=== PATIENT | female | born 1985 | race Caucasian/White ===

== ENCOUNTER → 2017-03-22 10:43 | Outpatient (CLI) | payer BC, SELFPAY ==
[2017-03-22 14:47] LABS: Group B Strep DNA By PCR Negative (Negative); Internal Control PASS; Probe Check PASS; Specimen Processing Control PASS
== END ==
PROVIDERS: Visit Provider Obstetrics & Gynecology
DX: Z36.85 Encounter for antenatal screening for Streptococcus B (principal)
CPT/HCPCS: 87081; 87653

== ENCOUNTER 2017-04-25 20:34 | Inpatient (IN) | payer BC, SELFPAY ==
[2017-04-25 21:08] VITALS: BMI 24.3
--- NOTE | 2017-04-25 21:35 | PCM.PN.BLA ---
Progress Note LABOR PROGRESS NOTE Relates she is doing well between contractions. AVSS GEN - NAD, AAO x 3, breathing through contractions FHr 120, moderate variability, + accelerations, no decelerations TOCO 5/10 SVE deferred A/P: 31yo @ 40 6/7wga in active labor, Cat I FHR -GBS neg -NST reactive, will plan intermittent auscultation -Continue in labor
[2017-04-25 21:42] LABS: Hematocrit 39.8 % (37-47); Hemoglobin 13.6 g/dl (12.0-15.0); Mean Corp Hgb Conc 34.2 g/gl (32-36); Mean Corpuscular Hgb 32.1 pg (27.0-32.0); Mean Corpuscular Volume 93.9 fL (81-99); Mean Platelet Vol. 10.7 fl (6.2-12.0); Platelet Count 167 K/mm3 (150-450); RBC Distribution Width SD 44.7 fl (35.1-43.9); Red Blood Count 4.24 M/mm3 (4.2-5.4)
[2017-04-25 21:43] LABS: Scan Indicated on CBC? Y/N NO
[2017-04-25] MEDS: Methylergonovine 0.2 MG/ML Ampul IM (23:24)
--- NOTE | 2017-04-25 23:36 | PCM.OB.VAG ---
- Problem List (1) 40 weeks gestation of Status: Acute (2) (spontaneous vaginal delivery) Status: Acute Vaginal Delivery Maternal Presentation: Active Labor Amniotic Membrane Rupture Type: Spontaneous Rupture of Membrane time: 04/25/17 2357h Amniotic Fluid Description: Clear Final ESTELLE: 04/19/17 Final ESTELLE Source: US <20 weeks Gestational age: 40 Weeks and 6 Days Date of Procedure: 04/25/17 Pre-Operative Diagnosis: 40 6/7wga, labor Post-Operative Diagnosis: 40 6/7wga, labor Surgery/ Procedure Performed: Spontaneous Vaginal Delivery Type of Anesthesia: None Description of Procedure: Patient was FD/+2 station. Spontaneous amniotomy occurred with clear fluid and she pushed to deliver a vigorous male infant in AMBAR over an intact perineum. The infant was assess by nursery personnel on the maternal chest. The placenta delivered spontaneously and appeared intact on inspection. The cord was doubly clamped and cut. There was increase in bleeding without hemorrhage, thus intrauterine exam was performed with blood clots retrieved. IM Methergine was given as patient previously declined pitocin IV. The fundus was firm at 3 FW below umbilicus and further massage expulsed additional clot with no further significant bleeding. Perineum was intact. Presentation: Vertex Placental Delivery Description: Spontaneous Placenta Disposition: [facility] Cord Vessel Description: 3 Vessels Nuchal Cord Compression: Without compression Cord Entanglement: None Estimated Blood Loss: 400 mL A gender: Male (1 minute): 8 (5 minute): 9 Episiotomy Description: None Laceration: None Medications given after delivery: IM Methergin
--- NOTE | 2017-04-25 23:49 | DCINST_ITS ---
Discharge Diet: No Restrictions Discharge Activity: Return to Normal Activity, May Shower, May Take a Tub Bath May resume sexual activity in: 6 weeks Lifting Restrictions: 20 lb Call your doctor if you observe: Fever of 101 or Higher, Inability to urinate, Inability to have a bowel movement, Using more than one pad per hour, Shortness of breath, Chest pain, Calf discomfort, Uncontrolled pain Additional Instructions: If you experience any of the following, contact your healthcare provider. * Bleeding that soaks a pad every hour for 2 hours * Fever 100.4 or higher * Unrelieved incision or abdominal pain * Swelling, redness, discharge or bleeding from your incision or episiotomy site * Your incision begins to separate * Problems urinating (including inability to urinate or burning while urinating) . * Visual changes * Severe headache * Flu-like symptoms * Pain or redness in one of both of your breasts * Pain, warmth, tenderness or swelling in your legs, especially the calf area * Frequent nausea and vomiting * Symptoms of depression or anxiety If you experience any of the following, call 911 or go to the nearest Emergency Room. * Chest pain * Problems breathing * Seizure activity * Partial or complete paralysis of a body part, slurred speech, weakness or drooping of the face, or a sudden inability to walk or hold your balance Allergies/Adverse Reactions: Allergies No Known Allergies Allergy (Verified 04/02/15 07:56) Medications to take at Discharge Docusate Sodium [Colace] 100 mg PO BID PRN PRN #30 capsule 04/02/15 Naproxen [Naprosyn] 1 - 2 tab PO TID PRN PRN #40 tablet 04/02/15 Vits [Prenatabs FA ] 1 tablet PO DAILY 04/02/15 Docusate Sodium [Colace] 100 mg PO BID PRN PRN #30 cap 04/25/17 Ibuprofen 800 mg PO TID PRN #30 tab 04/25/17 The following prescriptions were given: Docusate Sodium [Colace] 100 mg PO BID PRN PRN #30 cap PRN Reason: Constipation Ibuprofen 800 mg PO TID PRN #30 tab PRN Reason: Pain Orders to be completed after discharge: Electric breast pump Location: None Selected Please Follow Up With: Susy Zuniga MD When: 6 weeks
[2017-04-25] MEDS: Oxytocin 30 units/NS 500 ml 30 UNITS/500 ML IV.SOLN 334 UNITS IV (23:59)
[2017-04-26] MEDS: Oxytocin 30 units/NS 500 ml 30 UNITS/500 ML IV.SOLN 167 UNITS IV (00:30)
[2017-04-26 03:47] VITALS: BP 103/51; PULSE 72; RESP 16; TEMP 36.6; O2SAT 98
[2017-04-26 09:00] VITALS: BP 112/64; PULSE 95; RESP 16; TEMP 36.5
[2017-04-26 12:00] VITALS: BP 110/59; PULSE 88; RESP 16; TEMP 36.8
[2017-04-26 16:00] VITALS: BP 97/52; PULSE 74; RESP 16; TEMP 36.6
[2017-04-26 20:51] VITALS: BP 97/56; PULSE 75; RESP 18; TEMP 36.6
[2017-04-27 02:00] VITALS: BP 93/58; PULSE 71; RESP 18; TEMP 36.3
--- NOTE | 2017-04-27 09:43 | PCM.PN.OB ---
Patient Problems: Active and Suspected Problems 40 weeks gestation of (Acute) (spontaneous vaginal delivery) (Acute) Subjective: No complaints. Denies heavy lochia. Infant is nursing well. Objective: AVSS - Physical Exam General: Alert, Oriented x3, Cooperative, No apparent distress HEENT: Atraumatic, Normocephalic Lungs: Clear to auscultation, Normal air movement Cardiovascular: Regular rate, Regular Rhythm Abdomen: Soft, Non Tender, Non-Distended, - - Fundus firm and nontender Extremities: No edema, No Calf Tenderness Neurological: Neuro grossly intact Psych/Mental Status: Normal Affect, Appropriate, Alert and oriented to time, place, person, mood and affect Vital Signs Temp Pulse Resp BP Pulse Ox 97.3 F L 71 18 93/58 L 98 04/27/17 02:00 04/27/17 02:00 04/27/17 02:00 04/27/17 02:00 04/26/17 03:47 Oxygen Delivery Method Room Air Weight: 64.1 kg Body Mass Index (BMI) 24.3 Intake and Output for Last 24 Hours 04/25/17 04/26/17 04/27/17 23:59 23:59 23:59 Output Total 850 / 850 Balance -850 / -850 Assessment/Plan Active and Suspected Problems 40 weeks gestation of (Acute) (spontaneous vaginal delivery) (Acute) 31yo PPD#2 s/p doing well. -O positive, Rubella immune - - bilirubin levels pending -Plan for d/c home later today
--- NOTE | 2017-04-27 09:47 | PCM.PN.OB ---
Patient Problems: Active and Suspected Problems 40 weeks gestation of (Acute) (spontaneous vaginal delivery) (Acute) Subjective: No issues overnight. Lochia light to moderate. She is . No complaints. Objective: AVSS - Physical Exam General: Alert, Oriented x3, Cooperative, No apparent distress HEENT: Atraumatic, Normocephalic Lungs: Clear to auscultation, Normal air movement Cardiovascular: Regular rate, Regular Rhythm, Normal S1, Normal S2 Abdomen: Soft, Non Tender, Non-Distended, - - Fundus firm and nontender, lochia moderate Extremities: No edema, No Calf Tenderness Neurological: Neuro grossly intact Psych/Mental Status: Normal Affect, Appropriate, Alert and oriented to time, place, person, mood and affect Vital Signs Temp Pulse Resp BP Pulse Ox 97.3 F L 71 18 93/58 L 98 04/27/17 02:00 04/27/17 02:00 04/27/17 02:00 04/27/17 02:00 04/26/17 03:47 Oxygen Delivery Method Room Air Weight: 64.1 kg Body Mass Index (BMI) 24.3 Intake and Output for Last 24 Hours 04/25/17 04/26/17 04/27/17 23:59 23:59 23:59 Output Total 850 / 850 Balance -850 / -850 Assessment/Plan Active and Suspected Problems 40 weeks gestation of (Acute) (spontaneous vaginal delivery) (Acute) 31yo PPD#1 s/p doing well. -O positive, Rubella immune - -Routine care
[2017-04-27 10:00] VITALS: BP 101/55; PULSE 84; RESP 14; TEMP 36.4
--- NOTE | 2017-04-27 14:43 | NURSING ---
1358 Discharged to home with baby, ambulatory to car. Pt states she is wants to go home and feels fine and is able to care for herself and her baby.
== END 2017-04-27 13:58 | disposition home or self-care (01) | DRG 775 ==
PROVIDERS: Admitting Provider Obstetrics & Gynecology; Visit Provider Obstetrics & Gynecology
DX: O69.81X0 Labor and delivery complicated by cord around neck, without compression, not applicable or unspecified (principal); O48.0 Post-term pregnancy; Z3A.40 40 weeks gestation of pregnancy; Z37.0 Single live birth
CPT/HCPCS: 59050; 85027; 86850; 86900; 99218; G0378

== ENCOUNTER → 2020-03-09 | Outpatient (CLI) | payer SELFPAY ==
[2020-03-11 03:07] LABS: Chlamydia By Nucleic Acid AMP Negative (Negative)
[2020-03-11 20:34] LABS: Gonococcus By Nucleic Acid AMP Negative (Negative)
[2020-03-14 21:24] LABS: HPV Reflexed? NOT INDICATED
== END | disposition home or self-care (01) ==
LOC: LABSPEC 11:45
PROVIDERS: Visit Provider Obstetrics & Gynecology
DX: Z12.4 Encounter for screening for malignant neoplasm of cervix (principal); Z11.3 Encounter for screening for infections with a predominantly sexual mode of transmission
CPT/HCPCS: 87491; 87591; 88175; G0145

== ENCOUNTER → 2020-04-14 10:59 | Outpatient (CLI) | payer SELFPAY ==
[2020-04-14 13:48] LABS: Absolute Lymphocyte Count 2.12 X10^3/uL (0.83-4.51); Absolute Neutrophil Count 8.6 X10^3/uL (2.0-7.7); Basophil# 0.03 X10^3/uL; Basophil% 0.3 % (0-1); Eosinophil# 0.13 X10^3/uL; Eosinophils% 1.1 % (0-5); Hematocrit 40.9 % (37-47); Hemoglobin 13.9 g/dL (12.0-15.0); Lymphocyte # 2.12 X10^3/ul (4.0); Lymphocyte % 18.2 % (19-41); Mean Corpuscular Hgb 32.3 pg (27.0-32.0); Mean Corpuscular Volume 95.1 fL (81-99); Mean Platelet Vol. 11.1 fl (6.2-12.0); Monocyte# 0.69 X10^3/uL; Monocyte% 5.9 % (0-10); NRBC Flagged by Analyzer 0 % (0-5); Neutrophil # 8.62 X10^3/uL (2.7-7.7); Neutrophil % 74.2 % (47-70); Platelet Count 232 K/mm3 (150-450); RBC Distribution Width CV 12.6 % (11.6-14.6); RBC Distribution Width SD 43.7 fl (35.1-43.9); White Blood Count 11.6 K/mm3 (4.4-11.0)
[2020-04-14 14:37] LABS: HIV - WCH Non-Reactive (Nonreactive); Hepatitis B Surface Antigen Non-Reactive (Nonreactive); Hepatitis C Antibody Non-Reactive (Nonreactive); Rubella IgG Reactive (Nonreactive); Syphilis Antibodies Non-reactive
== END ==
PROVIDERS: Visit Provider Student in an Organized Health Care Education/Training Program
DX: Z34.82 Encounter for supervision of other normal pregnancy, second trimester (principal)
CPT/HCPCS: 36415; 85025; 86703; 86762; 86803; 87086; 87088; 87340

== ENCOUNTER → 2020-05-26 09:33 | Outpatient (CLI) | payer SELFPAY ==
[2020-05-26 13:15] LABS: Hemoglobin 12.7 g/dL (12.0-15.0); Mean Corp Hgb Conc 32.6 g/dL (32-36); Mean Corpuscular Hgb 31.7 pg (27.0-32.0); Mean Corpuscular Volume 97.3 fL (81-99); Mean Platelet Vol. 11.3 fl (6.2-12.0); Platelet Count 203 K/mm3 (150-450); RBC Distribution Width CV 12.8 % (11.6-14.6); RBC Distribution Width SD 45.2 fl (35.1-43.9); Red Blood Count 4.01 M/mm3 (4.2-5.4); White Blood Count 11.3 K/mm3 (4.4-11.0)
[2020-05-26 13:21] LABS: Glucose Challenge Gest 1H 50g 68 mg/dL (70-140)
== END ==
PROVIDERS: Visit Provider Student in an Organized Health Care Education/Training Program
DX: R69 Illness, unspecified (principal)
CPT/HCPCS: 36415; 82950; 85027

== ENCOUNTER → 2020-08-26 | Outpatient (CLI) | payer SELFPAY | END | disposition home or self-care (01) | LOC: LABSPEC 12:03 | PROVIDERS: Visit Provider Obstetrics & Gynecology | DX: Z36.85 Encounter for antenatal screening for Streptococcus B (principal) | CPT/HCPCS: 87077; 87081; 87186 ==

== ENCOUNTER 2020-09-09 14:05 | Inpatient (IN) | payer SELFPAY ==
[2020-09-09] VITALS (20 sets, daily range): BP systolic 98–122; BP diastolic 50–73; PULSE 57–87; RESP 18; TEMP 36.5–37.4; O2SAT 84–99; BMI 25.0
[2020-09-09] MEDS: Lactated Ringers 1,000 ML 50 ML IV (14:41)
[2020-09-09 14:45] LABS: Basophil# 0.03 X10^3/uL; Basophil% 0.2 % (0-1); Eosinophil# 0.04 X10^3/uL; Eosinophils% 0.3 % (0-5); Hematocrit 34.8 % (37-47); Hemoglobin 11.7 g/dL (12.0-15.0); Lymphocyte % 10.9 % (19-41); Mean Corp Hgb Conc 33.6 g/dL (32-36); Mean Corpuscular Hgb 30.1 pg (27.0-32.0); Mean Corpuscular Volume 89.5 fL (81-99); Mean Platelet Vol. 10.9 fl (6.2-12.0); Monocyte# 0.85 X10^3/uL; Monocyte% 5.8 % (0-10); NRBC Flagged by Analyzer 0 % (0-5); Neutrophil # 12.04 X10^3/uL (2.7-7.7); Neutrophil % 82.4 % (47-70); Platelet Count 179 K/mm3 (150-450); RBC Distribution Width CV 13.4 % (11.6-14.6); RBC Distribution Width SD 43.8 fl (35.1-43.9); Red Blood Count 3.89 M/mm3 (4.2-5.4); White Blood Count 14.6 K/mm3 (4.4-11.0)
--- NOTE | 2020-09-09 18:47 | PCM.HP.BLA ---
History and Physical Date of Admission: 09/09/20 Chief complaint: Contractions History of present illness: 34-year-old G4, P3 at 40 weeks and 3 days ESTELLE: 09/06/2020 by LMP arrives with contractions. Denies headache, chest pain, shortness breath, nausea vomiting, right upper quadrant pain. Patient states good movement. Obstetric history: G1: Term 2013 G2: Term 04/02/2015 G3: Term 04/25/2017 G4: Current Past medical history: None Medications: vitamin Allergies: No known drug allergies Past surgical history: [place] teeth extraction Social history: Denies history of smoking, alcohol use, drug use Family history: Denies history DVT or PE Review of systems: Besides the above pertinent positives a full review of systems was performed and found to be negative Physical exam: Blood pressure 103/56 pulse 66 General: Normal-appearing no acute distress HEENT: Normocephalic atraumatic no cervical of adenopathy Cardiac/respiratory: Nonlabored breathing no use of accessory muscles Abdomen: Soft, nontender, gravid Pelvic exam: Cervix 10/100/+1. AROM clear fluid Extremities: No peripheral edema normal peripheral pulses Psych: Normal affect, demeanor nonpressured speech Labs: White blood cell count 14.6 hemoglobin 11.7 hematocrit 34.8% platelets 179. Blood type O+ antibody negative Assessment plan: 34-year-old G4, P3 at 40 weeks and 3 days in labor Admit labor delivery CEFM GBS positive: Based on natural state and advanced cervical dilation unlikely to be able to treat Routine orders
--- NOTE | 2020-09-09 18:50 | EX.PCM.OBRPT ---
Vaginal Delivery Findings Description of Procedure: Normal spontaneous vaginal delivery of a viable male , vertex direct OA. Delivered in all fours position, head and shoulders delivered with ease. Cord cut and clamped. Baby handed off to mom. Placenta delivered via cord traction and fundal massage. Patient declined IV/IM Pitocin, understood risks of hemorrhage. Agrees to IM Methergine, IM Methergine 0.2 mg given. No lacerations noted. EBL 300 cc Apgars 8/9
[2020-09-09] MEDS: Methylergonovine 0.2 MG/ML Ampul IM (19:11)
--- NOTE | 2020-09-09 20:35 | NURSING ---
Egg size clot x1 noted after pt up to bathroom. Educated pt on bleeding and clots, pt verbalized understanding.
[2020-09-10 03:20] VITALS: BP 83/42; PULSE 59; RESP 16; TEMP 36.6; O2SAT 95
--- NOTE | 2020-09-10 05:00 | NURSING ---
Report given to Jennifer PEÑA, taking over pt and care at this time.
[2020-09-10 08:36] VITALS: BP 92/55; PULSE 67; RESP 16; TEMP 36.2; O2SAT 97
--- NOTE | 2020-09-10 11:17 | PCM.DC ---
Discharge Instructions Diet Discharge Diet: No restrictions Activity Discharge Activity: Return to Normal Activity, May Drive and May Shower May resume sexual activity in: 4-6 weeks Weight Bearing Status: Weight bearing as tolerated Dressing / Incision Call your doctor if your incision/area has: Continuous Slow Oozing and Foul Smelling Discharge Call your doctor if you observe: Fever of 101 or Higher, Shortness of breath and Chest pain Follow Up Care Please Follow Up With: Susy Mohan MD When: 2-week telehealth visit, 4 to 6-week visit Test Results: Test results from this visit will be discussed in further detail at your follow-up appointment, if applicable. Discharge Plan Admission Admit Date/Time: 09/09/20 14:05 Attending Provider: Murphy Champion Primary Care Provider: Care Physician,Lynne Primary Discharge Orders/Prescriptions Prescriptions: No Action Prenatabs FA 1 TABLET tablet 1 tab PO DAILY RF: 0
--- NOTE | 2020-09-10 11:18 | PCM.PN.OB ---
Subjective Subjective No overnight complaints. Pain well controlled. Objective Data Objective Data Vital Signs: Vital Signs Temp Pulse Resp BP Pulse Ox 97.2 F L 67 16 92/55 L 97 09/10/20 08:36 09/10/20 08:36 09/10/20 08:36 09/10/20 08:36 09/10/20 08:36 Oxygen Delivery Method Room Air Weight: 145 lb 8.081 oz Body Mass Index (BMI) 25.0 Intake & Output: Intake and Output for Last 24 Hours 09/08/20 09/09/20 09/10/20 23:59 23:59 23:59 Intake Total 60.83 / 60.83 Output Total 1300 / 1300 Balance -1239.17 / -1239.17 Lab / Micro Data Result Diagrams: 09/09/20 14:30 Labs: Laboratory Results - last 24 hr 09/09/20 14:30: WBC 14.6 H, RBC 3.89 L, Hgb 11.7 L, Hct 34.8 L, MCV 89.5, MCH 30.1, MCHC 33.6, RDW Std Deviation 43.8, RDW Coeff of Maia 13.4, Plt Count 179, MPV 10.9, Immature Gran % (Auto) 0.400, Neut % (Auto) 82.4 H, Lymph % (Auto) 10.9 L, [place] % (Auto) 5.8, Eos % (Auto) 0.3, Baso % (Auto) 0.2, Absolute Neuts (auto) 12.0 H, Absolute Lymphs (auto) 1.60, Nucleated RBC % 0 09/09/20 14:30: Blood Type O POSITIVE, Antibody Screen NEGATIVE Physical Exam Const alert, oriented x3, no apparent distress, average body habitus, healthy appearing and well nourished HEENT normocephalic and moist oral mucous membranes Head and Scalp: atraumatic Neck full ROM Resp normal respiratory effort, no retractions and no use of accessory muscles GI normal to inspection, nondistended, normoactive bowel sounds Extremity normal to inspection, full ROM and no clubbing, cyanosis or edema Psych mental status grossly normal, affect normal, speech normal and activity/motor behavior normal Assessment & Plan (1) : PLAN: day 1. Pain well controlled. Breast-feeding. GBS positive and untreated, plans per furniture assembler and installer. Patient with questions on apneic events overnight, discussed briefly to discuss further with furniture assembler and installer. Patient okay to discharge home if okay with furniture assembler and installer
[2020-09-10 12:05] VITALS: BP 101/49; PULSE 72; RESP 16; TEMP 36.4; O2SAT 96
[2020-09-10 16:56] VITALS: BP 85/44; PULSE 68; RESP 18; TEMP 36.3; O2SAT 97
--- NOTE | 2020-09-14 18:23 | NURSING ---
no answer on follow up phone call. left voicemail
== END 2020-09-10 19:20 | disposition home or self-care (01) | DRG 807 ==
LOC: WPOUT 14:11 → WP 18:11
PROVIDERS: Obstetrics & Gynecology; Admitting Provider Obstetrics & Gynecology; Referring Provider Obstetrics & Gynecology; Visit Provider Obstetrics & Gynecology
DX: O98.82 Other maternal infectious and parasitic diseases complicating childbirth (principal); Z37.0 Single live birth; B95.1 Streptococcus, group B, as the cause of diseases classified elsewhere; Z3A.40 40 weeks gestation of pregnancy
CPT/HCPCS: 59025; 59050; 85025; 86850; 86900; 86901; 99218; J7120; G0378

== ENCOUNTER 2022-12-09 08:30 | Inpatient (IN) | payer SELFPAY ==
[2022-12-09] VITALS (22 sets, daily range): BP systolic 99–124; BP diastolic 56–82; PULSE 55–83; RESP 16; TEMP 36.3–37; O2SAT 94–100; BMI 25.4
[2022-12-09 08:54] LABS: Absolute Neutrophil Count 10.7 X10^3/uL (2.0-7.7); Basophil# 0.03 X10^3/uL; Basophil% 0.2 % (0-1); Eosinophil# 0.03 X10^3/uL; Eosinophils% 0.2 % (0-5); Hematocrit 40.1 % (37-47); Hemoglobin 13.9 g/dL (12.0-15.0); Lymphocyte % 14.7 % (19-41); Mean Corp Hgb Conc 34.7 g/dL (32-36); Mean Corpuscular Hgb 31.7 pg (27.0-32.0); Mean Corpuscular Volume 91.6 fL (81-99); Monocyte# 0.72 X10^3/uL; Monocyte% 5.3 % (0-10); NRBC Flagged by Analyzer 0 % (0-5); Neutrophil # 10.74 X10^3/uL (2.7-7.7); Platelet Count 196 K/mm3 (150-450); RBC Distribution Width CV 12.8 % (11.6-14.6); RBC Distribution Width SD 42.7 fl (35.1-43.9); Red Blood Count 4.38 M/mm3 (4.2-5.4); White Blood Count 13.6 K/mm3 (4.4-11.0)
[2022-12-09 09:28] LABS: Syphilis Antibodies Non-reactive
[2022-12-09] MEDS: Lactated Ringers 1,000 ML 50 ML IV (09:43)
[2022-12-09] MEDS: Penicillin G Pot 5,000,000 UNITS in 0.9% Normal Saline (100mL MB+) 100 ML 150 UNITS IV (09:48)
[2022-12-09] MEDS: Oxytocin 15 Units/NS 250ml 15 UNITS/250 ML IV.SOLN 83 UNITS IV (10:13)
[2022-12-09] MEDS: Oxytocin 10 UNITS/ML Vial IM (10:13)
[2022-12-09] MEDS: Lidocaine 1% (20 ml mdv) 20 ML Vial INFILT (10:15)
--- NOTE | 2022-12-09 11:22 | PCM.HP.OB ---
HPI - General General Date of Admission: 12/09/22 HPI Narrative CARRIE CAMPBELL, is a 36 F who presents in spontaneous, active labor. Maternal Data Information ESTELLE Calculator Estimated Delivery Date Method Current WG Current Estimate 12/03/22 Manual 40w 6d PFSH PFSH Medical History no medical history Home Medications vits,calcium no.78-iron fumarate-folic acid 29 mg-1 mg tablet (Prenatabs FA) 1 tab PO DAILY 04/02/15 [History Last Taken 04/25/17 one] Allergy/AdvReac Type Severity Reaction Status Date / Time No Known Allergies Allergy Verified 12/09/22 08:23 Social History Smoking Status: Never smoker History Elective abortions Hx Para 4 Spontaneous abortions Hx # Term Pregnancies Ectopic pregnancies Hx # Pregnancies Multiple births # of living children ROS Eyes Eyes: Denies blurry vision, change in vision or spots in vision ENT HEENT: Denies dizziness or headache(s) Cardiovascular Cardiovascular: Denies abdominal pain, chest pain or dyspnea Respiratory/Chest Respiratory/Chest: Denies cough, dyspnea, shortness of breath at rest or shortness of breath with exertion Gastrointestinal Gastrointestinal: Denies abdominal pain, diarrhea or vomiting Genitourinary Genitourinary: Denies change in urinary stream, difficulty urinating or dysuria Musculoskeletal Musculoskeletal: Reports none Integumentary Integumentary: Denies rash Neurologic Neurologic: Denies dizziness, headache(s), memory loss or weakness Psychiatric Psychiatric: Reports none Vital Signs Vital Signs Vital Signs: 12/09/22 08:30 12/09/22 08:30 12/09/22 08:31 Temperature 97.8 F Temperature Source Pulse Rate 80 Blood Pressure 118/59 L BP Systolic 118 BP Diastolic 59 Pulse Ox 12/09/22 09:40 12/09/22 09:40 12/09/22 09:39 Temperature Temperature Source Temporal Pulse Rate 83 Blood Pressure 121/58 H BP Systolic 121 BP Diastolic 58 Pulse Ox 12/09/22 10:50 12/09/22 10:50 12/09/22 10:49 Temperature Temperature Source Pulse Rate 70 Blood Pressure 124/67 H BP Systolic 124 BP Diastolic 67 Pulse Ox 100 12/09/22 10:45 12/09/22 10:45 12/09/22 11:04 Temperature 98.1 F Temperature Source Temporal Pulse Rate Blood Pressure 116/64 BP Systolic 116 BP Diastolic 64 Pulse Ox 12/09/22 11:04 12/09/22 11:19 12/09/22 11:19 Temperature Temperature Source Pulse Rate 66 67 Blood Pressure 107/59 L BP Systolic 107 BP Diastolic 59 Pulse Ox Weight Weight: 148 lb 2.41 oz Body Mass Index (BMI) 25.4 Physical Exam Const alert and no apparent distress General Appearance: cooperative Orientation / Consciousness: awake Exam Limitations: no limitations HEENT normocephalic Eyes General Eye: normal appearance of both eyes Neck full ROM Chest inspection of chest normal Resp normal respiratory effort and normal air movement Effort and Inspection: symmetric chest movement Auscultation: clear to auscultation bilaterally Cardio regular rate GI soft to palpation, non-tender and non-distended Inspection: and other Back/Spine normal ROM Extremity full ROM, normal capillary refill and no calf tenderness Skin no rashes or lesions noted Neuro oriented x3 and CN's II-XII intact bilaterally Psych mental status grossly normal Labs Labs Labs: Blood Type O POSITIVE Antibody Screen NEGATIVE Hct 40.1 % (37-47) Hgb 13.9 g/dL (12.0-15.0) Syphilis Total Ab Non-reactive Rubella IgG Antibody Reactive (Nonreactive) Hep Bs Antigen Non-Reactive (Nonreactive) Hepatitis C Antibody Non-Reactive (Nonreactive) Hepatitis C Ab (EIA) <0.1 s/co ratio (0.0-0.9) Chlamydia DNA (TORSTEN) Negative (Negative) N.gonorrhoeae DNA (TORSTEN) Negative (Negative) HIV 1&2 Antibody Non-Reactive (Nonreactive) Glucose 1 Hr 50 gm 68 mg/dL (70-140) L Group B Strep DNA Negative (Negative) Rhogam given: No Assessment & Plan (1) 40 weeks gestation of : (2) Spontaneous onset of labor: (3) Active labor at term: (4) Positive GBS test: PLAN: Plan CE Admit to labor and delivery GBS positive- start PCN IV protocol IA Warm water immersion Anticipate Dr. Anderson notified of admission
--- NOTE | 2022-12-09 11:26 | EX.PCM.OBRPT ---
Assessment & Plan (1) Precipitous delivery: (2) Laceration, obstetrical, second degree: (3) Care and examination of lactating mother: Maternal Data Information ESTELLE Calculator Estimated Delivery Date Method Current WG Current Estimate 12/03/22 Manual 40w 6d Gestational age: 40.6 weeks Vaginal Delivery Maternal Presentation Maternal Presentation: Active Labor Maternal Presentation: at 40.6 weeks gestation that presents in spontaneous, active labor Operative Information Date of Procedure: 12/09/22 Pre-Operative Diagnosis: Term gestation, spontaneous onset of labor Post-Operative Diagnosis: , live male infant Surgery / Procedure Performed: Spontaneous Vaginal Delivery Type of Anesthesia: Local with 1% Lidocaine Estimated Blood Loss: 250 Time of Delivery: 10:11 Findings Description of Procedure: Provided bedside support during labor process. Patient using inflatable tub for warm water immersion. She progressed to complete dilation quickly. Patient transferred to bed in hands and knees position. With minimal maternal effort, head delivered followed by posterior shoulder and remainder of body. FOB assisted with guidance of through maternal legs to place skin to skin. Vigorous male infant dried off and placed skin to skin. 3 vessel cord clamped and cut after delay by FOB. Cord blood collected. Patient repositioned to lithotomy position. IV and IM Pitocin started for active management of the third stage of labor. Placenta delivered spontaneously and intact. Second degree laceration repaired in usual fashion after local anesthesia placed. Hemostasis obtained. Fundus firm 2 below U. Vaginal sweep completed by me. EBL [address] cc. APGARS 8/9. Dr. Anderson notified of delivery. Patient and infant bonding well at this time. Presentation: Vertex Amniotic Membrane Rupture Type: Spontaneous Time of Membrane Rupture: 846 Amniotic Fluid Description: Clear Placental Delivery Description: Spontaneous Placenta Disposition: [facility] Cord Vessel Description: 3 Vessels Cord Entanglement: None Nuchal Cord Compression: Without compression A Gender: Male (1 minute): 8 (5 minute): 9 Delayed Cord Clamping: Yes Post Vaginal Delivery Medications Given After Delivery: IV Pitocin and IM Pitocin Episiotomy Description: None Laceration: 2nd degree Complication Complications: None
[2022-12-10] VITALS (10 sets, daily range): BP systolic 100–119; BP diastolic 56–61; PULSE 58–245; RESP 16–18; TEMP 36.5–36.7; O2SAT 81–99
--- NOTE | 2022-12-10 08:57 | PCM.PN.OB ---
Subjective Subjective Doing well per patient and nursing staff. Ambulating and taking PO without difficulty. Voiding and passing flatus. Pain controlled. , services for assistance. Denies headache, visual changes, chest pain, shortness of breath, leg pain or increased bleeding. Lochia normal. Objective Data Objective Data Vital Signs: Vital Signs Temp Pulse Resp BP Pulse Ox O2 Del Method 98.1 F 68 16 107/61 97 Room Air 12/10/22 08:39 12/10/22 08:39 12/10/22 08:39 12/10/22 08:39 12/10/22 08:39 12/10/22 08:39 Oxygen Delivery Method Room Air Weight: 148 lb 2.41 oz Body Mass Index (BMI) 25.4 Intake & Output: Intake and Output for Last 24 Hours 12/08/22 12/09/22 12/10/22 23:59 23:59 23:59 Intake Total 313.52 / 313.52 Output Total 1150 / 1150 Balance -836.48 / -836.48 Lab / Micro Data 12/09/22 08:40 Labs: Laboratory Results - last 24 hr 12/09/22 08:40: Syphilis Total Ab Non-reactive, Blood Type O POSITIVE, Antibody Screen NEGATIVE 12/09/22 17:00: Direct Antiglob Test Cancelled, Baby's Blood Type Cancelled ROS Constitutional Constitutional: Reports systems reviewed and no addt'l complaints, except as documented; Denies headache(s) Eyes Eyes: Denies acute decrease in peripheral vision, blurry vision or change in vision ENT HEENT: Reports systems reviewed and no addt'l complaints, except as documented Cardiovascular Cardiovascular: Denies chest pain or dizziness Respiratory/Chest Respiratory/Chest: Denies cough, dyspnea, dyspnea on exertion, shortness of breath at rest or shortness of breath with exertion Gastrointestinal Gastrointestinal: Denies abdominal pain, diarrhea, nausea or vomiting Genitourinary Genitourinary: Denies abdominal discomfort Musculoskeletal Musculoskeletal: Denies limited range of motion Integumentary Integumentary: Reports systems reviewed and no addt'l complaints, except as documented Neurologic Neurologic: Reports systems reviewed and no addt'l complaints, except as documented Psychiatric Psychiatric: Reports systems reviewed and no addt'l complaints, except as documented Endocrine Endocrinology: Reports systems reviewed and no addt'l complaints, except as documented Hematologic/Lymphatic Hematologic/Lymphatic: Reports systems reviewed and no addt'l complaints, except as documented Allergic/Immunologic Allergic/Immunologic: Reports systems reviewed and no addt'l complaints, except as documented Physical Exam Const alert and oriented x3 General Appearance: cooperative Orientation / Consciousness: awake, oriented to person, oriented to place and oriented to time Exam Limitations: no limitations HEENT normocephalic Head and Scalp: normal to inspection, normocephalic and atraumatic Face and Sinus: normal facial exam Eyes General Eye: normal appearance of both eyes Neck full ROM Chest Chest: symmetrical chest wall rise Resp normal respiratory effort and normal air movement Auscultation: clear to auscultation bilaterally Cardio regular rate, regular rhythm, S1 normal heart sound, S2 normal heart sound, no murmurs, no rub, no gallops and no clicks GI normal to inspection, nondistended, normoactive bowel sounds and non-tender appearance of the vagina normal Bladder / Kidney Exam: no CVA tenderness Back/Spine normal ROM Extremity normal to inspection and full ROM Skin no rashes or lesions noted Neuro oriented x3, CN's II-XII intact bilaterally and moves all extremities Sensorium / Orientation: awake, alert and oriented to person Motor Exam: clonus absent Assessment & Plan (1) Care and examination of lactating mother: (2) Laceration, obstetrical, second degree: (3) Precipitous delivery: (4) Positive GBS test: (5) Vaginal delivery: PLAN: Plan 1) Routine PP care 2) 3) I&O 4) Pain management 5) D/C home, follow up in 2 week and 6 week PP
--- NOTE | 2022-12-10 08:59 | PCM.DC.SUM ---
Providers Date of Admission: 12/09/22 Primary Care Physician: Lynne Primary Care Phys Reason For Visit: VAG DELIVERY Diagnosis Discharge Diagnosis (1) Care and examination of lactating mother: Status: Acute Code(s): Z39.1 - Encounter for care and examination of lactating mother (2) Laceration, obstetrical, second degree: Status: Acute Code(s): O70.1 - Second degree perineal laceration during delivery (3) Precipitous delivery: Status: Acute Code(s): O62.3 - Precipitate labor (4) Positive GBS test: Status: Acute Code(s): B95.1 - Streptococcus, group B, as the cause of diseases classified elsewhere (5) Vaginal delivery: Status: Acute Code(s): O80 - Encounter for full-term uncomplicated delivery Plan 1) Routine PP care 2) 3) I&O 4) Pain management 5) D/C home, follow up in 2 week and 6 week PP Medications at Discharge Home Medications vits,calcium no.78-iron fumarate-folic acid 29 mg-1 mg tablet (Prenatabs FA) 1 tab PO DAILY 04/02/15 acetaminophen 500 mg tablet 1,000 mg (2 x 500 mg) PO Q6H PRN PRN Pain 1-10 Or Fever #0 tabs 12/10/22 benzocaine 20 %-menthol 0.5 % topical aerosol (Dermoplast (with menthol)) 1 spray topical TID PRN PRN perineal discomfort #0 grams 12/10/22 naproxen 500 mg tablet 500 mg PO Q8H PRN PRN Pain Score 1-3 #0 tabs 12/10/22 Hospital Course Summary of Care Provided Minutes Spent on Discharge: 15 Weight / BMI Weight Weight: 148 lb 2.41 oz Body Mass Index (BMI) 25.4 ABG / Lab / Microbiology Data 12/09/22 08:40 Laboratory: Laboratory Results - last 24 hr 12/09/22 08:40: Syphilis Total Ab Non-reactive, Blood Type O POSITIVE, Antibody Screen NEGATIVE 12/09/22 17:00: Direct Antiglob Test Cancelled, Baby's Blood Type Cancelled Meaningful Use Info Meaningful Use Diagnoses (Choose all that apply): None applicable Discharge Plan Admission Admit Date/Time: 12/09/22 08:30 Primary Reason for Your Visit: Vaginal Delivery Attending Provider: Zaira Loco Primary Care Provider: Care Physician,No Primary Discharge Orders/Prescriptions Prescriptions: New Dermoplast (with menthol) 20-0.5 % Aerosol 1 spray topical TID PRN PRN (Reason: perineal discomfort) Qty: 0 0RF Protocol: *Topical Application Instructions APPLICATION INSTRUCTIONS: 1 spray 3 times a day as needed for perineal discomfort acetaminophen 500 mg Tablet 1,000 mg PO Q6H PRN PRN (Reason: Pain 1-10 Or Fever) Qty: 0 0RF naproxen 500 mg Tablet 500 mg PO Q8H PRN PRN (Reason: Pain Score 1-3) Qty: 0 0RF Continued Prenatabs FA 1 TABLET tablet 1 tab PO DAILY Referrals / Follow Up: Care Physician,No Primary [Primary Care Provider] - Disposition Disposition (needs filled in before D/C Order can be placed): Home, Self Care
== END 2022-12-10 20:35 | disposition home or self-care (01) | DRG 807 ==
LOC: WPOUT 08:32 → WP 08:32
PROVIDERS: Admitting Provider Advanced Practice Midwife; Visit Provider Advanced Practice Midwife
DX: O99.824 Streptococcus B carrier state complicating childbirth (principal); Z37.0 Single live birth; O48.0 Post-term pregnancy; O62.3 Precipitate labor; O70.1 Second degree perineal laceration during delivery; Z3A.40 40 weeks gestation of pregnancy
CPT/HCPCS: 59025; 59050; 85025; 86780; 86850; 86900; 86901; 99221; J7120; G0378